=== PATIENT | male | born 1985 | race African-American/Black ===

== ENCOUNTER 2018-06-23 01:27 | Emergency (ER) | payer OTHER ==
[~2018-06-23] VITALS: Ht 195.6 cm; Wt 98.0 kg
[2018-06-23] MEDS ORDERED: ACETAMINOPHEN 325MG TABLET PO ONE (02:15)
[2018-06-23 03:57] VITALS: BP 139/89
== END 2018-06-23 04:03 | disposition home or self-care (01) ==
LOC: ER 01:27
DX: S00.83XA Contusion of other part of head, initial encounter (principal); M25.511 Pain in right shoulder; Y04.0XXA Assault by unarmed brawl or fight, initial encounter; Y93.89 Activity, other specified; Y92.89 Other specified places as the place of occurrence of the external cause; Y99.8 Other external cause status
CPT/HCPCS: 73030; 99284